=== PATIENT | female | born 1945 | race Caucasian/White ===

== ENCOUNTER 2017-06-27 12:36 | Inpatient (IN) | payer MEDICARE, OTHER ==
[2017-06-27] MEDS: HYDROmorphONE 1 MG/ML SYG IV (12:59)
[2017-06-27] MEDS: ONDANSETRON 4 MG INJ IV (12:59)
[2017-06-27] MEDS: DILTIAZEM 25 MG INJ IV (12:59)
[2017-06-27 13:05] LABS: ADD MAN DIFF? NO
[2017-06-27 13:07] LABS: WHITE BLOOD COUNT 11.5 10^3/ul (4.8-10.8)
[2017-06-27 13:07] LABS: ABNORMAL IP MESSAGE 1; BASOPHILS % 0.2 % (0.0-2.0); EOSINOPHILS # 0.3 10^3/ul (0.0-0.5); EOSINOPHILS % 2.3 % (0.0-7.0); HEMATOCRIT 27.6 % (37.0-47.0); HEMOGLOBIN 8.3 g/dl (12.0-16.0); LYMPHOCYTES # 0.3 10^3/ul (0.8-2.9); MEAN CORPUSCULAR HEMOGLOBIN 29.2 pg (29.0-33.0); MEAN CORPUSCULAR HGB CONC 30.1 g/dl (32.0-37.0); MEAN CORPUSCULAR VOLUME 97.2 fl (82.0-101.0); MEAN PLATELET VOLUME 9.4 fl (7.4-10.4); MONOCYTE # 0.6 10^3/ul (0.3-0.9); MONOCYTES % 5.6 % (0.0-11.0); NEUTROPHIL # 10.1 10^3/ul (1.6-7.5); NEUTROPHILS % 87.9 % (39.0-77.0); PLATELET COUNT 345 10^3/UL (140-415); RED BLOOD COUNT 2.84 10^6/ul (4.20-5.40); RED CELL DISTRIBUTION WIDTH 15.9 % (11.5-14.5)
[2017-06-27 13:20] LABS: POSITIVE DIFF @See below
[2017-06-27 13:49] LABS: ANION GAP 15 (8-16); BLOOD UREA NITROGEN 37 mg/dl (7-20); CALCIUM 9.7 mg/dl (8.4-10.2); CARBON DIOXIDE 30 mmol/L (21-31); CHLORIDE 91 mmol/L (97-110); CREATININE 1.92 mg/dl (0.44-1.00); GLUCOSE 139 mg/dl (70-220); POTASSIUM 4.8 mmol/L (3.5-5.1); SODIUM 131 mmol/L (135-144)
[2017-06-27 13:59] LABS: TROPONIN-I < 0.012 ng/ml (0.00-0.12)
[2017-06-27] MEDS ORDERED: ONDANSETRON 4 MG INJ IV (14:30)
[2017-06-27] MEDS ORDERED: ACETAMINOPHEN 325 MG TAB PO (14:30)
[2017-06-27] MEDS: SOD CHLORIDE 0.9% 1,000 ML IV (15:15)
[2017-06-27] MEDS: LIDOCAINE/MYLANTA 40 ML BTL PO (15:37)
[2017-06-27] MEDS ORDERED: MAGNESIUM HYDROXIDE 30ML CUP GTB (16:30)
[2017-06-27] MEDS: OXYCODONE/ACETAMINOPHEN (5/325) TAB GTB ×5 (16:30→22:57)
[2017-06-27] MEDS: LORAZEPAM 0.5 MG TAB GTB (17:18)
[2017-06-27] MEDS: ALBUTEROL 0.083% (NEB) 2.5 MG/3 ML AMP HHN (19:08)
[2017-06-27] MEDS: ALBUTEROL/IPRATROPIUM (NEB) 3 ML AMP NEB ×2 (19:34→23:36)
[2017-06-27] MEDS: DOCUSATE SODIUM 100 MG CAP PO (20:49)
[2017-06-27] MEDS: APIXABAN 5 MG TABLET GTB ×2 (20:58→22:56)
[2017-06-27] MEDS: SILDENAFIL 20 MG TAB GTB (21:00)
[2017-06-27] MEDS: MIRTAZAPINE 15 MG TAB GTB (21:00)
[2017-06-27] MEDS: OXCARBAZEPINE 300 MG TAB GTB ×2 (21:00→22:57)
[2017-06-27] MEDS: SENNA TAB GTB (21:00)
[2017-06-27] MEDS: DIGOXIN 500 MCG INJ IV (21:25)
[2017-06-27 22:01] LABS: CREATINE KINASE < 20 IU/L (23-200)
[2017-06-27 22:07] LABS: CK-MB 2.14 ng/ml (0.0-2.4); TROPONIN-I 0.018 ng/ml (0.00-0.12)
[2017-06-27] MEDS: METOPROLOL 50 MG TAB GTB (22:58)
[2017-06-27] MEDS: BUDESONIDE (NEB) 0.25 MG/2 ML AMP INH (23:30)
[2017-06-28] MEDS: IPRATROPIUM (HFA) 12.9 GM INHALER INH ×4 (02:46→21:19)
[2017-06-28] MEDS: ALBUTEROL HFA 8 GM INHALER INH ×4 (02:46→21:19)
[2017-06-28 05:31] LABS: ADD MAN DIFF? NO
[2017-06-28] MEDS: OXYCODONE/ACETAMINOPHEN (5/325) TAB GTB ×5 (05:40→22:19)
[2017-06-28 05:43] LABS: WHITE BLOOD COUNT 7.5 10^3/ul (4.8-10.8)
[2017-06-28 05:43] LABS: BASOPHILS % 0.1 % (0.0-2.0); EOSINOPHILS # 0.3 10^3/ul (0.0-0.5); HEMATOCRIT 24.1 % (37.0-47.0); HEMOGLOBIN 7.4 g/dl (12.0-16.0); LYMPHOCYTES # 0.6 10^3/ul (0.8-2.9); MEAN CORPUSCULAR HEMOGLOBIN 29.6 pg (29.0-33.0); MEAN CORPUSCULAR HGB CONC 30.7 g/dl (32.0-37.0); MEAN CORPUSCULAR VOLUME 96.4 fl (82.0-101.0); MEAN PLATELET VOLUME 9.4 fl (7.4-10.4); MONOCYTE # 0.6 10^3/ul (0.3-0.9); MONOCYTES % 7.8 % (0.0-11.0); NEUTROPHIL # 5.9 10^3/ul (1.6-7.5); NEUTROPHILS % 79.2 % (39.0-77.0); PLATELET COUNT 287 10^3/UL (140-415); RED CELL DISTRIBUTION WIDTH 15.8 % (11.5-14.5)
[2017-06-28] MEDS: LEVOTHYROXINE 75 MCG TAB PO (06:12)
[2017-06-28 06:26] LABS: DIGOXIN 0.6 ng/ml (1.0-2.0)
[2017-06-28 06:31] LABS: CREATINE KINASE < 20 IU/L (23-200)
[2017-06-28 06:32] LABS: CREATINE KINASE < 20 IU/L (23-200)
[2017-06-28 06:35] LABS: ALANINE AMINOTRANSFERASE 32 IU/L (13-69); ALKALINE PHOSPHATASE 128 IU/L (42-121); ANION GAP 13 (8-16); ASPARTATE AMINO TRANSFERASE 19 IU/L (15-46); BLOOD UREA NITROGEN 32 mg/dl (7-20); CALCIUM 9.6 mg/dl (8.4-10.2); CARBON DIOXIDE 29 mmol/L (21-31); CHLORIDE 96 mmol/L (97-110); CHOL/HDL RATIO 2.7 RATIO; CHOLESTEROL 108 mg/dl (100-200); CREATININE 1.92 mg/dl (0.44-1.00); GLUCOSE 121 mg/dl (70-220); HDL CHOLESTEROL 40 mg/dl (33-92); LDL CHOLESTEROL,CALCULATED 40 mg/dl; POTASSIUM 4.3 mmol/L (3.5-5.1); SODIUM 134 mmol/L (135-144); TRIGLYCERIDES 142 mg/dl (0-149)
[2017-06-28 06:36] LABS: CK-MB 1.53 ng/ml (0.0-2.4); TROPONIN-I 0.021 ng/ml (0.00-0.12)
[2017-06-28 06:42] LABS: CK-MB 1.62 ng/ml (0.0-2.4); TROPONIN-I 0.022 ng/ml (0.00-0.12)
[2017-06-28] MEDS: BUDESONIDE (NEB) 0.25 MG/2 ML AMP INH ×2 (08:57→21:19)
[2017-06-28] MEDS: FLUTICASONE 0.05% 16 GM NAS SPRAY NASAL (09:00)
[2017-06-28] MEDS ORDERED: SERTRALINE 100 MG TAB GTB (09:00)
[2017-06-28] MEDS: BISACODYL 10 MG SUPP PR (09:00)
[2017-06-28] MEDS: SERTRALINE 50 MG TAB GTB (09:18)
[2017-06-28] MEDS: OXCARBAZEPINE 300 MG TAB GTB ×2 (09:18→20:44)
[2017-06-28] MEDS: APIXABAN 5 MG TABLET GTB ×2 (09:18→20:45)
[2017-06-28] MEDS: predniSONE 5 MG TAB GTB (09:18)
[2017-06-28] MEDS: LINAGLIPTIN 5 MG TABLET GTB (09:18)
[2017-06-28] MEDS: LORATADINE 10 MG TAB GTB (09:18)
[2017-06-28] MEDS: TACROLIMUS 1 MG CAP GTB (09:19)
[2017-06-28] MEDS: DOCUSATE SODIUM 100 MG CAP PO ×2 (09:19→20:44)
[2017-06-28] MEDS: LANSOPRAZOLE 30 MG CAP GTB (09:19)
[2017-06-28] MEDS: LORAZEPAM 0.5 MG TAB GTB ×3 (09:19→22:45)
[2017-06-28] MEDS: METOPROLOL 50 MG TAB GTB ×3 (09:20→20:45)
[2017-06-28] MEDS: SILDENAFIL 20 MG TAB GTB ×3 (09:33→21:01)
[2017-06-28 11:35] LABS: MAGNESIUM 2.3 mg/dl (1.7-2.5)
[2017-06-28 11:35] LABS: PHOSPHORUS 3.1 mg/dl (2.5-4.9)
[2017-06-28] MEDS: CIPROFLOXACIN 0.3% 2.5 ML OPH LEFT EYE ×2 (13:24→21:01)
[2017-06-28] MEDS: CEFEPIME 1GM/50 ML (PMX) 50 ML IVPB (16:49)
[2017-06-28] MEDS: MIRTAZAPINE 15 MG TAB GTB (20:44)
[2017-06-28] MEDS: SENNA TAB GTB (21:00)
[2017-06-29] MEDS: ALBUTEROL HFA 8 GM INHALER INH ×4 (01:33→20:41)
[2017-06-29] MEDS: IPRATROPIUM (HFA) 12.9 GM INHALER INH ×4 (01:33→20:23)
[2017-06-29] MEDS: LEVOTHYROXINE 75 MCG TAB PO ×2 (07:06→09:35)
[2017-06-29] MEDS: OXYCODONE/ACETAMINOPHEN (5/325) TAB GTB ×3 (07:07→21:42)
[2017-06-29 07:58] LABS: ADD MAN DIFF? NO
[2017-06-29 08:17] LABS: WHITE BLOOD COUNT 11.9 10^3/ul (4.8-10.8)
[2017-06-29 08:17] LABS: ABNORMAL IP MESSAGE 1; BASOPHILS % 0.3 % (0.0-2.0); EOSINOPHILS # 0.3 10^3/ul (0.0-0.5); EOSINOPHILS % 2.9 % (0.0-7.0); HEMATOCRIT 29.9 % (37.0-47.0); HEMOGLOBIN 8.8 g/dl (12.0-16.0); LYMPHOCYTES # 0.4 10^3/ul (0.8-2.9); LYMPHOCYTES % 3.3 % (15.0-51.0); MEAN CORPUSCULAR HEMOGLOBIN 29.1 pg (29.0-33.0); MEAN CORPUSCULAR HGB CONC 29.4 g/dl (32.0-37.0); MEAN PLATELET VOLUME 9.4 fl (7.4-10.4); MONOCYTE # 0.6 10^3/ul (0.3-0.9); MONOCYTES % 4.8 % (0.0-11.0); NEUTROPHIL # 10.5 10^3/ul (1.6-7.5); PLATELET COUNT 318 10^3/UL (140-415); RED BLOOD COUNT 3.02 10^6/ul (4.20-5.40); RED CELL DISTRIBUTION WIDTH 16.1 % (11.5-14.5)
[2017-06-29 08:38] LABS: POSITIVE DIFF @See below
[2017-06-29 08:39] LABS: ANION GAP 19 (8-16); BLOOD UREA NITROGEN 26 mg/dl (7-20); CALCIUM 9.9 mg/dl (8.4-10.2); CARBON DIOXIDE 25 mmol/L (21-31); CHLORIDE 96 mmol/L (97-110); CREATININE 1.86 mg/dl (0.44-1.00); GLUCOSE 183 mg/dl (70-220); MAGNESIUM 2.1 mg/dl (1.7-2.5); PHOSPHORUS 2.9 mg/dl (2.5-4.9); POTASSIUM 4.5 mmol/L (3.5-5.1); SODIUM 135 mmol/L (135-144)
[2017-06-29] MEDS: predniSONE 5 MG TAB GTB (09:35)
[2017-06-29] MEDS: LORATADINE 10 MG TAB GTB (09:35)
[2017-06-29] MEDS: DOCUSATE SODIUM 100 MG CAP PO ×2 (09:35→21:00)
[2017-06-29] MEDS: LINAGLIPTIN 5 MG TABLET GTB (09:36)
[2017-06-29] MEDS: SERTRALINE 50 MG TAB GTB (09:36)
[2017-06-29] MEDS: TACROLIMUS 1 MG CAP GTB (09:36)
[2017-06-29] MEDS: LANSOPRAZOLE 30 MG CAP GTB (09:36)
[2017-06-29] MEDS: OXCARBAZEPINE 300 MG TAB GTB ×2 (09:36→21:43)
[2017-06-29] MEDS: CIPROFLOXACIN 0.3% 2.5 ML OPH LEFT EYE ×3 (09:37→21:46)
[2017-06-29] MEDS: FLUTICASONE 0.05% 16 GM NAS SPRAY NASAL (09:37)
[2017-06-29] MEDS: APIXABAN 5 MG TABLET GTB ×2 (09:37→21:45)
[2017-06-29] MEDS: METOPROLOL 50 MG TAB GTB ×3 (09:37→21:44)
[2017-06-29] MEDS: BISACODYL 10 MG SUPP PR (09:38)
[2017-06-29] MEDS: SILDENAFIL 20 MG TAB GTB ×3 (09:48→22:00)
[2017-06-29] MEDS: ACETAMINOPHEN 325 MG TAB GTB (09:59)
[2017-06-29] MEDS: BUDESONIDE (NEB) 0.25 MG/2 ML AMP INH ×2 (13:14→20:53)
[2017-06-29] MEDS: CEFEPIME 1GM/50 ML (PMX) 50 ML IVPB (14:24)
[2017-06-29] MEDS ORDERED: VANCOMYCIN IV PER PHARMACY XX (15:00)
[2017-06-29] MEDS: VANCOMYCIN 1.5 GM in DEXTROSE 5% 500 ML IVPB (17:49)
[2017-06-29] MEDS: LORAZEPAM 0.5 MG TAB GTB (18:22)
[2017-06-29] MEDS: MIRTAZAPINE 15 MG TAB GTB (21:43)
[2017-06-29] MEDS: SENNA TAB GTB (21:43)
[2017-06-30] MEDS: LORAZEPAM 0.5 MG TAB GTB ×4 (00:19→21:05)
[2017-06-30] MEDS: IPRATROPIUM (HFA) 12.9 GM INHALER INH ×4 (01:37→21:21)
[2017-06-30] MEDS: ALBUTEROL HFA 8 GM INHALER INH ×4 (01:38→21:22)
[2017-06-30] MEDS: OXYCODONE/ACETAMINOPHEN (5/325) TAB GTB ×4 (04:30→22:30)
[2017-06-30 05:36] LABS: Allen Test ACCEPTAB; Arterial Base Excess 3.7 mmol/L (-3.0-3); Arterial Blood Gas Oxygen Sat 95.8 mmHG (95.0-100.0); Arterial COHb 0.2 % (0.0-3.0); Arterial Fraction of Oxyhgb 95.5 % (93.0-99.0); Arterial HCO3 29.2 mmol/L (22.0-26.0); Arterial MetHb 0.1 % (0.0-1.5); Arterial Total Hemglobin 10.9 g/dl (12.0-18.0); Arterial pCO2 48.4 mmhg (35-45); MODE VENT - AC; Site Right Radial
[2017-06-30 07:03] LABS: ADD MAN DIFF? NO
[2017-06-30 07:09] LABS: BASOPHILS % 0.1 % (0.0-2.0); EOSINOPHILS # 0.4 10^3/ul (0.0-0.5); EOSINOPHILS % 3.7 % (0.0-7.0); HEMATOCRIT 27.1 % (37.0-47.0); HEMOGLOBIN 8.1 g/dl (12.0-16.0); LYMPHOCYTES # 0.6 10^3/ul (0.8-2.9); LYMPHOCYTES % 5.7 % (15.0-51.0); MEAN CORPUSCULAR HEMOGLOBIN 29.2 pg (29.0-33.0); MEAN CORPUSCULAR HGB CONC 29.9 g/dl (32.0-37.0); MEAN CORPUSCULAR VOLUME 97.8 fl (82.0-101.0); MEAN PLATELET VOLUME 9.7 fl (7.4-10.4); MONOCYTE # 0.6 10^3/ul (0.3-0.9); MONOCYTES % 5.3 % (0.0-11.0); NEUTROPHIL # 8.9 10^3/ul (1.6-7.5); NEUTROPHILS % 84.4 % (39.0-77.0); PLATELET COUNT 309 10^3/UL (140-415); RED BLOOD COUNT 2.77 10^6/ul (4.20-5.40); RED CELL DISTRIBUTION WIDTH 15.9 % (11.5-14.5)
[2017-06-30 07:09] LABS: WHITE BLOOD COUNT 10.5 10^3/ul (4.8-10.8)
[2017-06-30 08:04] LABS: ANION GAP 17 (8-16); BLOOD UREA NITROGEN 32 mg/dl (7-20); CALCIUM 9.6 mg/dl (8.4-10.2); CARBON DIOXIDE 26 mmol/L (21-31); CHLORIDE 93 mmol/L (97-110); GLUCOSE 129 mg/dl (70-220); MAGNESIUM 2.2 mg/dl (1.7-2.5); PHOSPHORUS 2.8 mg/dl (2.5-4.9); POTASSIUM 3.7 mmol/L (3.5-5.1); SODIUM 132 mmol/L (135-144)
[2017-06-30] MEDS: FLUTICASONE 0.05% 16 GM NAS SPRAY NASAL (08:25)
[2017-06-30] MEDS: CIPROFLOXACIN 0.3% 2.5 ML OPH LEFT EYE ×3 (08:26→20:45)
[2017-06-30] MEDS: LANSOPRAZOLE 30 MG CAP GTB (08:27)
[2017-06-30] MEDS: SERTRALINE 50 MG TAB GTB (08:27)
[2017-06-30] MEDS: BISACODYL 10 MG SUPP PR (08:28)
[2017-06-30] MEDS: LEVOTHYROXINE 75 MCG TAB PO (08:28)
[2017-06-30] MEDS: APIXABAN 5 MG TABLET GTB ×2 (08:29→20:42)
[2017-06-30] MEDS: LORATADINE 10 MG TAB GTB (08:30)
[2017-06-30] MEDS: TACROLIMUS 1 MG CAP GTB (08:30)
[2017-06-30] MEDS: DOCUSATE SODIUM 100 MG CAP PO ×2 (08:30→20:42)
[2017-06-30] MEDS: LINAGLIPTIN 5 MG TABLET GTB (08:30)
[2017-06-30] MEDS: predniSONE 5 MG TAB GTB (08:31)
[2017-06-30] MEDS: OXCARBAZEPINE 300 MG TAB GTB ×2 (08:31→20:43)
[2017-06-30] MEDS: SILDENAFIL 20 MG TAB GTB ×3 (09:00→20:44)
[2017-06-30] MEDS: METOPROLOL 50 MG TAB GTB ×3 (09:00→20:43)
[2017-06-30] MEDS: BUDESONIDE (NEB) 0.25 MG/2 ML AMP INH ×2 (13:33→21:22)
[2017-06-30] MEDS: CEFEPIME 1GM/50 ML (PMX) 50 ML IVPB (14:14)
[2017-06-30] MEDS: ACETAMINOPHEN 325 MG TAB GTB (14:23)
[2017-06-30] MEDS: MIRTAZAPINE 15 MG TAB GTB (20:43)
[2017-06-30] MEDS: SENNA TAB GTB (20:43)
[2017-07-01] MEDS: ALBUTEROL HFA 8 GM INHALER INH ×4 (03:00→19:17)
[2017-07-01] MEDS: IPRATROPIUM (HFA) 12.9 GM INHALER INH ×4 (03:00→19:17)
[2017-07-01] MEDS: LORAZEPAM 0.5 MG TAB GTB (03:11)
[2017-07-01 05:41] LABS: ADD MAN DIFF? NO
[2017-07-01 05:51] LABS: BASOPHILS % 0.2 % (0.0-2.0); EOSINOPHILS # 0.4 10^3/ul (0.0-0.5); EOSINOPHILS % 4.1 % (0.0-7.0); HEMATOCRIT 26.1 % (37.0-47.0); LYMPHOCYTES # 0.7 10^3/ul (0.8-2.9); LYMPHOCYTES % 6.8 % (15.0-51.0); MEAN CORPUSCULAR HEMOGLOBIN 29.2 pg (29.0-33.0); MEAN CORPUSCULAR HGB CONC 30.7 g/dl (32.0-37.0); MEAN CORPUSCULAR VOLUME 95.3 fl (82.0-101.0); MEAN PLATELET VOLUME 9.7 fl (7.4-10.4); MONOCYTE # 0.5 10^3/ul (0.3-0.9); MONOCYTES % 5.1 % (0.0-11.0); NEUTROPHIL # 8.5 10^3/ul (1.6-7.5); NEUTROPHILS % 82.4 % (39.0-77.0); PLATELET COUNT 299 10^3/UL (140-415); RED BLOOD COUNT 2.74 10^6/ul (4.20-5.40); RED CELL DISTRIBUTION WIDTH 16.1 % (11.5-14.5)
[2017-07-01 05:51] LABS: WHITE BLOOD COUNT 10.4 10^3/ul (4.8-10.8)
[2017-07-01] MEDS: OXYCODONE/ACETAMINOPHEN (5/325) TAB GTB ×4 (05:51→22:44)
[2017-07-01 06:09] LABS: VANCOMYCIN,RANDOM 11.1 ug/ml
[2017-07-01 06:10] LABS: ANION GAP 14 (8-16); BLOOD UREA NITROGEN 26 mg/dl (7-20); CALCIUM 9.2 mg/dl (8.4-10.2); CARBON DIOXIDE 27 mmol/L (21-31); CHLORIDE 91 mmol/L (97-110); CREATININE 2.17 mg/dl (0.44-1.00); GLUCOSE 155 mg/dl (70-220); MAGNESIUM 2.1 mg/dl (1.7-2.5); PHOSPHORUS 2.7 mg/dl (2.5-4.9); POTASSIUM 3.4 mmol/L (3.5-5.1); SODIUM 129 mmol/L (135-144)
[2017-07-01] MEDS: METOPROLOL 50 MG TAB GTB ×3 (08:19→22:21)
[2017-07-01] MEDS: TACROLIMUS 1 MG CAP GTB (08:20)
[2017-07-01] MEDS: predniSONE 5 MG TAB GTB (08:20)
[2017-07-01] MEDS: SERTRALINE 50 MG TAB GTB (08:20)
[2017-07-01] MEDS: LANSOPRAZOLE 30 MG CAP GTB (08:21)
[2017-07-01] MEDS: LORATADINE 10 MG TAB GTB (08:21)
[2017-07-01] MEDS: OXCARBAZEPINE 300 MG TAB GTB ×2 (08:21→22:20)
[2017-07-01] MEDS: APIXABAN 5 MG TABLET GTB ×2 (08:21→22:23)
[2017-07-01] MEDS: DOCUSATE SODIUM 100 MG CAP PO ×2 (08:22→22:19)
[2017-07-01] MEDS: FLUTICASONE 0.05% 16 GM NAS SPRAY NASAL ×2 (08:22→22:22)
[2017-07-01] MEDS: CIPROFLOXACIN 0.3% 2.5 ML OPH LEFT EYE ×3 (08:22→22:22)
[2017-07-01] MEDS: LINAGLIPTIN 5 MG TABLET GTB (08:23)
[2017-07-01] MEDS: SILDENAFIL 20 MG TAB GTB ×3 (08:31→22:35)
[2017-07-01] MEDS: BISACODYL 10 MG SUPP PR (08:31)
[2017-07-01] MEDS: BUDESONIDE (NEB) 0.25 MG/2 ML AMP INH ×2 (09:00→21:00)
[2017-07-01] MEDS: VANCOMYCIN 1 GM 250 ML IVPB (10:09)
[2017-07-01] MEDS: CEFEPIME 1GM/50 ML (PMX) 50 ML IVPB (14:37)
[2017-07-01] MEDS: SENNA TAB GTB (22:21)
[2017-07-01] MEDS: MIRTAZAPINE 15 MG TAB GTB (22:22)
[2017-07-02] MEDS: LORAZEPAM 0.5 MG TAB GTB ×3 (00:32→21:38)
[2017-07-02] MEDS: ALBUTEROL HFA 8 GM INHALER INH ×4 (01:11→20:10)
[2017-07-02] MEDS: IPRATROPIUM (HFA) 12.9 GM INHALER INH ×4 (01:12→20:10)
[2017-07-02] MEDS: OXYCODONE/ACETAMINOPHEN (5/325) TAB GTB ×4 (06:01→23:39)
[2017-07-02] MEDS: LEVOTHYROXINE 75 MCG TAB PO (06:35)
[2017-07-02 08:37] LABS: ADD MAN DIFF? NO
[2017-07-02 08:39] LABS: BASOPHILS % 0.1 % (0.0-2.0); EOSINOPHILS # 0.5 10^3/ul (0.0-0.5); EOSINOPHILS % 5.5 % (0.0-7.0); HEMATOCRIT 27.1 % (37.0-47.0); HEMOGLOBIN 8.4 g/dl (12.0-16.0); LYMPHOCYTES # 0.7 10^3/ul (0.8-2.9); LYMPHOCYTES % 8.5 % (15.0-51.0); MEAN CORPUSCULAR HEMOGLOBIN 29.8 pg (29.0-33.0); MEAN CORPUSCULAR VOLUME 96.1 fl (82.0-101.0); MEAN PLATELET VOLUME 9.7 fl (7.4-10.4); MONOCYTE # 0.5 10^3/ul (0.3-0.9); MONOCYTES % 5.6 % (0.0-11.0); NEUTROPHIL # 6.6 10^3/ul (1.6-7.5); NEUTROPHILS % 78.5 % (39.0-77.0); PLATELET COUNT 273 10^3/UL (140-415); RED BLOOD COUNT 2.82 10^6/ul (4.20-5.40); RED CELL DISTRIBUTION WIDTH 15.9 % (11.5-14.5)
[2017-07-02 08:39] LABS: WHITE BLOOD COUNT 8.4 10^3/ul (4.8-10.8)
[2017-07-02] MEDS: SILDENAFIL 20 MG TAB GTB ×3 (09:00→23:39)
[2017-07-02] MEDS: METOPROLOL 50 MG TAB GTB ×2 (09:00→21:00)
[2017-07-02 09:12] LABS: ANION GAP 19 (8-16); BLOOD UREA NITROGEN 37 mg/dl (7-20); CALCIUM 9.1 mg/dl (8.4-10.2); CARBON DIOXIDE 24 mmol/L (21-31); CHLORIDE 90 mmol/L (97-110); CREATININE 2.61 mg/dl (0.44-1.00); GLUCOSE 156 mg/dl (70-220); MAGNESIUM 2.2 mg/dl (1.7-2.5); PHOSPHORUS 3.2 mg/dl (2.5-4.9); POTASSIUM 3.8 mmol/L (3.5-5.1); SODIUM 129 mmol/L (135-144)
[2017-07-02] MEDS: DOCUSATE SODIUM 100 MG CAP PO ×2 (10:10→21:38)
[2017-07-02] MEDS: LANSOPRAZOLE 30 MG CAP GTB (10:10)
[2017-07-02] MEDS: SERTRALINE 50 MG TAB GTB (10:11)
[2017-07-02] MEDS: CIPROFLOXACIN 0.3% 2.5 ML OPH LEFT EYE ×3 (10:11→21:40)
[2017-07-02] MEDS: OXCARBAZEPINE 300 MG TAB GTB ×2 (10:11→23:38)
[2017-07-02] MEDS: BISACODYL 10 MG SUPP PR (10:12)
[2017-07-02] MEDS: LINAGLIPTIN 5 MG TABLET GTB (10:12)
[2017-07-02] MEDS: TACROLIMUS 1 MG CAP GTB (10:12)
[2017-07-02] MEDS: predniSONE 5 MG TAB GTB (10:12)
[2017-07-02] MEDS: LORATADINE 10 MG TAB GTB (10:12)
[2017-07-02] MEDS: APIXABAN 5 MG TABLET GTB ×2 (10:12→21:37)
[2017-07-02] MEDS ORDERED: PENDING SANTYL ORDER FOR WOUND CARE XX (10:30)
[2017-07-02] MEDS ORDERED: COLLAGENASE 30 GM TUBE TOP (11:30)
[2017-07-02] MEDS: BUDESONIDE (NEB) 0.25 MG/2 ML AMP INH ×2 (13:47→20:11)
[2017-07-02] MEDS: CEFEPIME 1GM/50 ML (PMX) 50 ML IVPB (14:54)
[2017-07-02] MEDS: COLLAGENASE 30 GM TUBE TOP (14:56)
[2017-07-02] MEDS: MIRTAZAPINE 15 MG TAB GTB (21:38)
[2017-07-02] MEDS: HEPARIN 1000 UNITS/ML 10 ML INJ CATHETER (22:30)
[2017-07-02] MEDS: SENNA TAB GTB (23:40)
[2017-07-03] MEDS: IPRATROPIUM (HFA) 12.9 GM INHALER INH ×4 (01:10→19:23)
[2017-07-03] MEDS: ALBUTEROL HFA 8 GM INHALER INH ×4 (01:11→19:23)
[2017-07-03] MEDS: OXYCODONE/ACETAMINOPHEN (5/325) TAB GTB ×4 (04:19→22:45)
[2017-07-03] MEDS: LEVOTHYROXINE 75 MCG TAB PO (06:40)
[2017-07-03] MEDS: BUDESONIDE (NEB) 0.25 MG/2 ML AMP INH ×2 (08:21→21:23)
[2017-07-03] MEDS: LANSOPRAZOLE 30 MG CAP GTB (09:23)
[2017-07-03] MEDS: OXCARBAZEPINE 300 MG TAB GTB ×2 (09:23→21:15)
[2017-07-03] MEDS: TACROLIMUS 1 MG CAP GTB (09:23)
[2017-07-03] MEDS: LORATADINE 10 MG TAB GTB (09:23)
[2017-07-03] MEDS: LINAGLIPTIN 5 MG TABLET GTB (09:24)
[2017-07-03] MEDS: METOPROLOL 50 MG TAB GTB ×2 (09:24→21:00)
[2017-07-03] MEDS: DOCUSATE SODIUM 100 MG CAP PO ×2 (09:24→21:14)
[2017-07-03] MEDS: SERTRALINE 50 MG TAB GTB (09:24)
[2017-07-03] MEDS: BISACODYL 10 MG SUPP PR (09:25)
[2017-07-03] MEDS: FLUTICASONE 0.05% 16 GM NAS SPRAY NASAL (09:25)
[2017-07-03] MEDS: COLLAGENASE 30 GM TUBE TOP (09:25)
[2017-07-03] MEDS: APIXABAN 5 MG TABLET GTB ×2 (09:25→21:15)
[2017-07-03] MEDS: predniSONE 5 MG TAB GTB (09:25)
[2017-07-03] MEDS: SILDENAFIL 20 MG TAB GTB ×3 (09:25→21:00)
[2017-07-03] MEDS: CIPROFLOXACIN 0.3% 2.5 ML OPH LEFT EYE ×3 (09:26→21:17)
[2017-07-03 09:34] LABS: ANION GAP 18 (8-16); BLOOD UREA NITROGEN 28 mg/dl (7-20); CALCIUM 9.5 mg/dl (8.4-10.2); CARBON DIOXIDE 24 mmol/L (21-31); CHLORIDE 94 mmol/L (97-110); CREATININE 2.18 mg/dl (0.44-1.00); GLUCOSE 176 mg/dl (70-220); MAGNESIUM 2.2 mg/dl (1.7-2.5); PHOSPHORUS 2.6 mg/dl (2.5-4.9); POTASSIUM 3.6 mmol/L (3.5-5.1); SODIUM 132 mmol/L (135-144)
[2017-07-03] MEDS: CEFEPIME 1GM/50 ML (PMX) 50 ML IVPB (14:50)
[2017-07-03] MEDS: MIRTAZAPINE 15 MG TAB GTB (21:14)
[2017-07-03] MEDS: SENNA TAB GTB (21:15)
[2017-07-04] MEDS: ALBUTEROL HFA 8 GM INHALER INH ×4 (01:39→19:44)
[2017-07-04] MEDS: IPRATROPIUM (HFA) 12.9 GM INHALER INH ×4 (01:39→19:44)
[2017-07-04] MEDS: OXYCODONE/ACETAMINOPHEN (5/325) TAB GTB ×4 (05:09→22:47)
[2017-07-04] MEDS: LEVOTHYROXINE 75 MCG TAB PO (06:08)
[2017-07-04 07:38] LABS: VANCOMYCIN,RANDOM 14.7 ug/ml
[2017-07-04] MEDS: METOPROLOL 50 MG TAB GTB ×2 (08:31→20:49)
[2017-07-04] MEDS: COLLAGENASE 30 GM TUBE TOP (08:32)
[2017-07-04] MEDS: SILDENAFIL 20 MG TAB GTB ×3 (08:32→20:49)
[2017-07-04] MEDS: SERTRALINE 50 MG TAB GTB (08:39)
[2017-07-04] MEDS: OXCARBAZEPINE 300 MG TAB GTB ×2 (08:39→20:48)
[2017-07-04] MEDS: LANSOPRAZOLE 30 MG CAP GTB (08:39)
[2017-07-04] MEDS: LINAGLIPTIN 5 MG TABLET GTB (08:39)
[2017-07-04] MEDS: TACROLIMUS 1 MG CAP GTB (08:39)
[2017-07-04] MEDS: DOCUSATE SODIUM 100 MG CAP PO ×2 (08:39→20:47)
[2017-07-04] MEDS: APIXABAN 5 MG TABLET GTB ×2 (08:39→20:48)
[2017-07-04] MEDS: LORATADINE 10 MG TAB GTB (08:39)
[2017-07-04] MEDS: predniSONE 5 MG TAB GTB (08:39)
[2017-07-04] MEDS: BISACODYL 10 MG SUPP PR (08:39)
[2017-07-04] MEDS: FLUTICASONE 0.05% 16 GM NAS SPRAY NASAL (08:40)
[2017-07-04] MEDS: CIPROFLOXACIN 0.3% 2.5 ML OPH LEFT EYE ×3 (08:40→20:52)
[2017-07-04] MEDS: BUDESONIDE (NEB) 0.25 MG/2 ML AMP INH ×2 (09:48→21:22)
[2017-07-04] MEDS: BALSAM PERU/CASTOR OIL 60 GM TUBE TOP (10:27)
[2017-07-04] MEDS: VANCOMYCIN 1 GM 250 ML IVPB (11:34)
[2017-07-04] MEDS: CEFEPIME 1GM/50 ML (PMX) 50 ML IVPB (13:41)
[2017-07-04] MEDS: LORAZEPAM 0.5 MG TAB GTB (14:23)
[2017-07-04] MEDS: MIRTAZAPINE 15 MG TAB GTB (20:47)
[2017-07-04] MEDS: SENNA TAB GTB (20:47)
[2017-07-04] MEDS: ONDANSETRON 4 MG TAB GTB (21:02)
[2017-07-05] MEDS: IPRATROPIUM (HFA) 12.9 GM INHALER INH ×3 (01:45→13:40)
[2017-07-05] MEDS: ALBUTEROL HFA 8 GM INHALER INH ×3 (01:46→13:41)
[2017-07-05] MEDS: OXYCODONE/ACETAMINOPHEN (5/325) TAB GTB ×3 (04:41→14:24)
[2017-07-05] MEDS: LEVOTHYROXINE 75 MCG TAB PO (06:13)
[2017-07-05 07:30] LABS: ADD MAN DIFF? NO
[2017-07-05 07:36] LABS: WHITE BLOOD COUNT 12.2 10^3/ul (4.8-10.8)
[2017-07-05 07:36] LABS: BASOPHILS % 0.2 % (0.0-2.0); EOSINOPHILS # 0.6 10^3/ul (0.0-0.5); EOSINOPHILS % 5.1 % (0.0-7.0); HEMATOCRIT 25.3 % (37.0-47.0); HEMOGLOBIN 7.7 g/dl (12.0-16.0); LYMPHOCYTES # 0.8 10^3/ul (0.8-2.9); LYMPHOCYTES % 6.2 % (15.0-51.0); MEAN CORPUSCULAR HEMOGLOBIN 29.2 pg (29.0-33.0); MEAN CORPUSCULAR HGB CONC 30.4 g/dl (32.0-37.0); MEAN CORPUSCULAR VOLUME 95.8 fl (82.0-101.0); MEAN PLATELET VOLUME 10.1 fl (7.4-10.4); MONOCYTE # 0.7 10^3/ul (0.3-0.9); MONOCYTES % 5.5 % (0.0-11.0); NEUTROPHIL # 9.9 10^3/ul (1.6-7.5); NEUTROPHILS % 81.7 % (39.0-77.0); PLATELET COUNT 268 10^3/UL (140-415); RED BLOOD COUNT 2.64 10^6/ul (4.20-5.40); RED CELL DISTRIBUTION WIDTH 15.9 % (11.5-14.5)
[2017-07-05 08:11] LABS: ANION GAP 17 (8-16); BLOOD UREA NITROGEN 33 mg/dl (7-20); CALCIUM 9.5 mg/dl (8.4-10.2); CARBON DIOXIDE 26 mmol/L (21-31); CHLORIDE 94 mmol/L (97-110); GLUCOSE 141 mg/dl (70-220); MAGNESIUM 2.2 mg/dl (1.7-2.5); PHOSPHORUS 2.6 mg/dl (2.5-4.9); POTASSIUM 3.6 mmol/L (3.5-5.1); SODIUM 133 mmol/L (135-144)
[2017-07-05] MEDS: APIXABAN 5 MG TABLET GTB (08:54)
[2017-07-05] MEDS: LORATADINE 10 MG TAB GTB (08:54)
[2017-07-05] MEDS: LINAGLIPTIN 5 MG TABLET GTB (08:54)
[2017-07-05] MEDS: OXCARBAZEPINE 300 MG TAB GTB (08:55)
[2017-07-05] MEDS: METOPROLOL 50 MG TAB GTB (08:56)
[2017-07-05] MEDS: predniSONE 5 MG TAB GTB (08:58)
[2017-07-05] MEDS: LANSOPRAZOLE 30 MG CAP GTB (08:58)
[2017-07-05] MEDS: SERTRALINE 50 MG TAB GTB (08:59)
[2017-07-05] MEDS: TACROLIMUS 1 MG CAP GTB (08:59)
[2017-07-05] MEDS: FLUTICASONE 0.05% 16 GM NAS SPRAY NASAL (09:00)
[2017-07-05] MEDS: DOCUSATE SODIUM 100 MG CAP PO ×2 (09:00→09:07)
[2017-07-05] MEDS: BISACODYL 10 MG SUPP PR ×2 (09:00→09:07)
[2017-07-05] MEDS: SILDENAFIL 20 MG TAB GTB ×3 (09:14→13:19)
[2017-07-05] MEDS: CIPROFLOXACIN 0.3% 2.5 ML OPH LEFT EYE ×2 (09:14→13:17)
[2017-07-05] MEDS: BALSAM PERU/CASTOR OIL 60 GM TUBE TOP (13:17)
[2017-07-05] MEDS: COLLAGENASE 30 GM TUBE TOP (13:17)
[2017-07-05] MEDS: BUDESONIDE (NEB) 0.25 MG/2 ML AMP INH (13:39)
[2017-07-05] MEDS: CEFEPIME 1GM/50 ML (PMX) 50 ML IVPB (14:24)
== END 2017-07-05 16:00 | DRG 870 ==
LOC: E/R 12:36 → TEL 14:04
PROC: 5A1955Z Respiratory Ventilation, Greater than 96 Consecutive Hours (ICD-10-PCS; principal; 2017-06-27)
PROC: 5A1D70Z Performance of Urinary Filtration, Intermittent, Less than 6 Hours Per Day (ICD-10-PCS; 2017-06-27)
PROC: 5A1D70Z Performance of Urinary Filtration, Intermittent, Less than 6 Hours Per Day (ICD-10-PCS; 2017-06-28)
PROC: 5A1D70Z Performance of Urinary Filtration, Intermittent, Less than 6 Hours Per Day (ICD-10-PCS; 2017-06-30)
PROC: 5A1D70Z Performance of Urinary Filtration, Intermittent, Less than 6 Hours Per Day (ICD-10-PCS; 2017-07-02)
PROC: 5A1D70Z Performance of Urinary Filtration, Intermittent, Less than 6 Hours Per Day (ICD-10-PCS; 2017-07-04)
DX: A41.9 Sepsis, unspecified organism (principal); J96.21 Acute and chronic respiratory failure with hypoxia; J95.851 Ventilator associated pneumonia; J18.9 Pneumonia, unspecified organism; I13.2 Hypertensive heart and chronic kidney disease with heart failure and with stage 5 chronic kidney disease, or end stage renal disease; J44.0 Chronic obstructive pulmonary disease with (acute) lower respiratory infection; Z93.0 Tracheostomy status; N18.6 End stage renal disease; E11.22 Type 2 diabetes mellitus with diabetic chronic kidney disease; E11.40 Type 2 diabetes mellitus with diabetic neuropathy, unspecified; Z94.0 Kidney transplant status; E87.1 Hypo-osmolality and hyponatremia; I50.9 Heart failure, unspecified; I48.91 Unspecified atrial fibrillation; I27.20 Pulmonary hypertension, unspecified; E87.70 Fluid overload, unspecified; Z99.2 Dependence on renal dialysis; Z93.1 Gastrostomy status; R13.10 Dysphagia, unspecified; D64.9 Anemia, unspecified; E78.5 Hyperlipidemia, unspecified; E03.9 Hypothyroidism, unspecified; E87.6 Hypokalemia; F32.9 Major depressive disorder, single episode, unspecified; G89.4 Chronic pain syndrome; R60.1 Generalized edema; Z79.899 Other long term (current) drug therapy; Z79.4 Long term (current) use of insulin; Z79.02 Long term (current) use of antithrombotics/antiplatelets; Z79.891 Long term (current) use of opiate analgesic
CPT/HCPCS: 36600; 71010; 80048; 80053; 80061; 80162; 80202; 82550; 82553; 82803; 82962; 83735; 84100; 84443; 84484; 85025; 87040; 90935; 92526; 92610; 93005; 93306; 94002; 94003; 94640; 94664; 96374; 96375; 99285-25; G0378